=== PATIENT | female | born 1955 | race Caucasian/White ===

== ENCOUNTER 2017-10-23 08:37 | Day surgery (SDC) | payer OTHER ==
[2017-10-23] MEDS ORDERED: Bupivacaine 0.5%/EPINEPHrine 1:200,000 50 ML MDV ONE (08:57)
[2017-10-23] MEDS ORDERED: Acetaminophen 500 MG Tab PO ONE (09:15)
[2017-10-23] MEDS ORDERED: Dextrose 5%-Lactated Ringers 1,000 ML IV SCH (09:30)
[2017-10-23] MEDS ORDERED: Albuterol/Ipratropium 3.0-0.5 MG/3 ML Neb Soln NEB ONE (09:45)
[2017-10-23] MEDS ORDERED: Clindamycin Phosphate 900 MG in Sodium Chloride 0.9% 100 ML IV ONE (10:30)
[2017-10-23] MEDS ORDERED: Midazolam 1 MG/ML 2 ML SDV ONE (10:43)
[2017-10-23] MEDS ORDERED: Propofol 200 MG/20 ML SDV ONE (10:43)
[2017-10-23] MEDS ORDERED: fentaNYL 100 MCG/2 ML SDV ONE (10:43)
[2017-10-23] MEDS ORDERED: Linezolid 200 MG/100 ML Bag IRR ONE (11:48)
--- NOTE | 2017-10-29 08:33 | OR ---
DATE OF PROCEDURE: 10/23/2017 PREOPERATIVE DIAGNOSIS: Malpositioned lap band port. POSTOPERATIVE DIAGNOSIS: Malpositioned lap band port. OPERATIVE PROCEDURE: Repositioning of lap band port (61612). ANESTHESIA: Local plus IV sedation. UNDERCOLLAR BASTER: Ellie Kumar PA-C. INDICATION FOR PROCEDURE: This is a 62-year-old previously status post a lap band placement in [place], [place]. Recently, the port became excessively mobile and tipping on its side, causing quite a bit in the way of discomfort, as well as inability to adequately access the port. The plan is to proceed with revision of the port site with replacement of the port as indicated. Potential risks of the procedure, including bleeding, infection, possible further complications regarding the band system were all reviewed, and the patient wishes to proceed. DETAILS OF PROCEDURE: The patient was taken to the operating room. After IV sedation was administered, the abdomen was then prepped and draped. A transverse incision over the existing port site was then made and carried down through the skin and subcutaneous tissue and down to the level of the fascia. The port was then freed up of surrounding soft tissue attachments that appeared to be otherwise uninjured. The port was then accessed using a Swanson-type needle and 1.5 mL of saline withdrawn, and this was then replaced. as the patient wished not to have that volume being changed. A pocket below the original port site was then created directly over the fascia in an inferior direction. This allowed placement of the port in a different and more solid-type area. Initially, a disc of Prolene mesh was sutured on the underside of the port with 5-0 Prolene stitch. These stitches were then used to position the port and fix it in position in the new pocket. The area was then irrigated with Zyvox-containing saline solution, and the incision then closed with 3-0 and 4-0 Vicryl stitch deep and then a 4-0 Vicryl skin stitch. Dressing was applied. The patient was taken to the recovery room in satisfactory condition. Physician asset protection assistant, Ellie Kumar, played an essential role in assisting in this case, helping to position the patient, retract structures as needed, as well as suturing and cutting sutures when indicated. Her presence improved the patient's safety and decreased the operative time. Сергей Russo MD /[id number]
== END 2017-10-23 14:45 | disposition home or self-care (01) ==
LOC: JP.SDS 08:37
PROVIDERS: ATTEND Surgery
DX: K95.09 Other complications of gastric band procedure (principal); I25.10 Atherosclerotic heart disease of native coronary artery without angina pectoris; K21.9 Gastro-esophageal reflux disease without esophagitis; J45.909 Unspecified asthma, uncomplicated; E78.5 Hyperlipidemia, unspecified; I10 Essential (primary) hypertension; E11.9 Type 2 diabetes mellitus without complications; Z79.82 Long term (current) use of aspirin; Z88.0 Allergy status to penicillin; Z88.1 Allergy status to other antibiotic agents; Z91.040 Latex allergy status; Z91.09 Other allergy status, other than to drugs and biological substances; Z79.899 Other long term (current) drug therapy
CPT/HCPCS: 43771; A9270; C1781; J2020; J2250; J2704; J3010; J7030; J7042; J7620; S0077